=== PATIENT | male | born 1985 | race Caucasian/White ===

== ENCOUNTER 2016-11-30 23:16 | Emergency (ER) | payer SELFPAY ==
[~2016-11-30] VITALS: Wt 70.3 kg
[~2016-11-30 23:16] MED LIST: AMOXICILLIN500 MG PO; AMOXIL500 MG PO; ANAPROX DS550 MG PO; ATARAX25 MG PO; ATENOLOL25 MG PO; BACTRIM DS 8001 TA1 PO; CLARITIN10 MG PO; CLEOCIN HCL150 MG PO; CLINDAMYCIN HC300 MG PO; CLINDAMYCIN300 MG PO; CYMBALTA60 MG PO; DAYPRO600 M1 PO; DOXYCYCLINE MO100 MG PO; ERYTHROMYCIN5 MG/G1 OP; FLEXERIL10 MG PO; FLEXERIL5 MG PO; Fioricet 325 MG1 TAB PO; IBU-8800 MG PO; IMITREX50 MG PO; KEFLEX500 MG PO; KENALOG0.1% TP; LOPRESSOR25 MG PO; Lunesta2 MG PO; MOTRIN600 MG PO; MOTRIN800 MG PO; MS CONTIN30 MG PO; NKHM; Nystatin Cream15 GM PO; OMNICEF300 MG PO; OXYCONTIN20 MG PO; PEN-VEE K500 MG PO; PREDNICOT20 MG PO; REQUIP5 MG PO; RIBAVIRIN PO; SEPTRA DS 800 M1 TAB PO; SEROQUEL50 MG PO; SUBOXONE 8 MG-21 TA2 SL; SUDAFED60 MG PO; TRAMADOL HCL50 MG PO; TRAMADOL50 MG PO; TRIMOX500 MG PO; ULTRAM50 MG PO; VICODIN 5/500 505 MG PO; VICODIN 500 MG-1 TAB PO; VICODIN ES 7501 TAB PO; VISTARIL25 M1 PO; VOLTAREN50 M1 PO; WYMOX500 MG PO; ZITHROMAX Z PA250 MG PO; ZYRTEC10 MG PO
[2016-12-01 00:21] LABS: BASO % 0.3 % (0.0-1.0); EOS # 0.1 10*3/uL (0.0-0.4); EOS % 1.4 % (1.0-4.0); HEMATOCRIT 41.9 % (42.0-52.0); LYMPH # 3.7 10*3/uL (1.3-4.4); LYMPH % 43.5 % (27.0-41.0); MEAN CELL VOLUME 83.6 fl (80.0-94.0); MEAN CORPUSCULAR HGB 27.9 pg (27.0-31.0); MEAN CORPUSCULAR HGB CONC 33.4 g/dl (33.0-37.0); MONO # 0.6 10*3/uL (0.1-1.0); MONO % 7.2 % (3.0-9.0); NEUT # 4.1 10*3/uL (2.3-7.9); NEUT % 47.5 % (47.0-73.0); PLATELET COUNT AUTOMATED 196 10*3/uL (130-400); RED BLOOD COUNT 5.01 10*6/uL (4.50-5.90); RED CELL DISTRI WIDTH 13.1 % (0-14.5); WHITE BLOOD COUNT 8.6 10*3/uL (4.8-10.8)
[2016-12-01 00:37] LABS: ALBUMIN 3.6 gm/dl (3.1-4.5); ALKALINE PHOSPHATASE 63 U/L (45-117); BILIRUBIN, TOTAL 0.4 mg/dl (0.2-1.0); BUN 15 mg/dl (7-24); C-REACTIVE PROTEIN 0.53 MG/DL (0-0.3); CARBON DIOXIDE 28 mmol/L (21-32); CHLORIDE 102 mmol/L (98-107); EST GLOM FILT AFRICAN AMERICAN > 60 ml/min; GLUCOSE 95 mg/dL (65-99); POTASSIUM 3.4 mmol/L (3.5-5.1); SGOT/AST 12 IU/L (3-35); SGPT/ALT 11 U/L (12-78); SODIUM 139 mmol/L (136-145); TOTAL PROTEIN 7.9 gm/dL (6.4-8.2)
== END 2016-12-01 02:52 | disposition left against medical advice (07) ==
LOC: ED 23:16
PROVIDERS: Emergency Medicine Emergency Medical Services
DX: R11.2 Nausea with vomiting, unspecified (principal); F17.200 Nicotine dependence, unspecified, uncomplicated

== ENCOUNTER 2017-03-31 23:35 | Emergency (ER) | payer SELFPAY ==
[~2017-03-31] VITALS: Ht 170.1 cm; Wt 70.3 kg
[2017-04-01] MEDS ORDERED: CEFADROXIL500 M1 PO (00:01)
== END 2017-04-01 01:09 | disposition home or self-care (01) ==
LOC: ED 23:35
DX: S80.862A Insect bite (nonvenomous), left lower leg, initial encounter (principal); F17.200 Nicotine dependence, unspecified, uncomplicated; X58.XXXA Exposure to other specified factors, initial encounter; Y93.9 Activity, unspecified; Y92.9 Unspecified place or not applicable; Y99.9 Unspecified external cause status

== ENCOUNTER 2017-10-30 14:32 | Emergency (ER) | payer OTHER ==
[~2017-10-30] VITALS: Ht 170.1 cm; Wt 68.0 kg
[~2017-10-30 14:32] MED LIST changes: +CEFADROXIL500 M1 PO
== END 2017-10-30 15:09 | disposition home or self-care (01) ==
LOC: ED 14:32
DX: R73.09 Other abnormal glucose (principal); R25.1 Tremor, unspecified; H53.8 Other visual disturbances; R11.0 Nausea; R51 Headache

== ENCOUNTER 2017-11-20 05:19 | Emergency (ER) | payer OTHER ==
[~2017-11-20] VITALS: Ht 170.1 cm; Wt 70.3 kg
[2017-11-20] MEDS ORDERED: MONTELUKAST SODI5 M1 PO (06:03)
[2017-11-20] MEDS ORDERED: ADV 100/50 INH (06:04)
[2017-11-20] MEDS ORDERED: PROVENTIL HFA6.7 GM INH (06:04)
[2017-11-20] MEDS ORDERED: KETOROLAC10 MG PO (06:17)
== END 2017-11-20 06:20 | disposition home or self-care (01) ==
LOC: ED 05:19
DX: S80.02XA Contusion of left knee, initial encounter (principal); W21.03XA Struck by baseball, initial encounter; Y93.79 Activity, other specified sports and athletics; Y92.89 Other specified places as the place of occurrence of the external cause; Y99.8 Other external cause status

== ENCOUNTER 2018-01-10 18:21 | Emergency (ER) | payer OTHER ==
[~2018-01-10] VITALS: Ht 167.6 cm; Wt 68.0 kg
[~2018-01-10 18:21] MED LIST changes: +ADV 100/50 INH; +KETOROLAC10 MG PO; +MONTELUKAST SODI5 M1 PO; +PROVENTIL HFA6.7 GM INH
[2018-01-10] MEDS ORDERED: SEPTDS PO (18:43)
== END 2018-01-10 19:07 | disposition home or self-care (01) ==
LOC: ED 18:21
DX: L02.416 Cutaneous abscess of left lower limb (principal); Z79.899 Other long term (current) drug therapy

== ENCOUNTER 2018-02-17 18:38 | Emergency (ER) | payer OTHER ==
[~2018-02-17] VITALS: Ht 170.1 cm; Wt 68.0 kg
[~2018-02-17 18:38] MED LIST changes: +SEPTDS PO
[2018-02-17] MEDS ORDERED: SEPTDS PO (18:40)
[2018-02-17] MEDS ORDERED: KEFLEX500 M1 PO (18:40)
== END 2018-02-17 18:51 | disposition home or self-care (01) ==
LOC: ED 18:38
DX: L98.499 Non-pressure chronic ulcer of skin of other sites with unspecified severity (principal); R03.0 Elevated blood-pressure reading, without diagnosis of hypertension

== ENCOUNTER → 2018-03-24 | Outpatient (CLI) | payer OTHER ==
[~2018-03-24] MED LIST changes: +KEFLEX500 M1 PO
== END | disposition home or self-care (01) ==
LOC: RESCLI 01:48
DX: E16.2 Hypoglycemia, unspecified (principal); F90.9 Attention-deficit hyperactivity disorder, unspecified type; R00.0 Tachycardia, unspecified; F17.210 Nicotine dependence, cigarettes, uncomplicated; Z79.899 Other long term (current) drug therapy

== ENCOUNTER → 2018-04-03 | Outpatient (CLI) | payer SELFPAY | END | disposition home or self-care (01) | LOC: LAB 00:36 | DX: E16.2 Hypoglycemia, unspecified (principal) ==

== ENCOUNTER → 2018-07-20 | Outpatient (CLI) | payer SELFPAY | END | disposition home or self-care (01) | LOC: RESCLI 03:14 | DX: L24.9 Irritant contact dermatitis, unspecified cause (principal); F90.9 Attention-deficit hyperactivity disorder, unspecified type; F17.200 Nicotine dependence, unspecified, uncomplicated; Z79.899 Other long term (current) drug therapy; Z88.8 Allergy status to other drugs, medicaments and biological substances ==

== ENCOUNTER → 2018-09-07 | Outpatient (CLI) | payer OTHER | END | disposition home or self-care (01) | LOC: LAB 13:53 | DX: R20.8 Other disturbances of skin sensation (principal) ==

== ENCOUNTER 2021-03-12 12:56 | Emergency (ER) | payer OTHER ==
[~2021-03-12] VITALS: Ht 170.1 cm; Wt 68.0 kg
[2021-03-12 14:22] LABS: BASO % 0.4 % (0.0-1.0); EOS # 0.1 10*3/uL (0.0-0.4); EOS % 0.5 % (1.0-4.0); HEMATOCRIT 44.6 % (42.0-52.0); LYMPH # 2.5 10*3/uL (1.3-4.4); LYMPH % 25.8 % (27.0-41.0); MEAN CORPUSCULAR HGB 28.9 pg (27.0-31.0); MEAN CORPUSCULAR HGB CONC 32.5 g/dl (33.0-37.0); MEAN PLATELET VOLUME 9.4 fl (9.6-12.3); MONO # 0.6 10*3/uL (0.1-1.0); MONO % 6.6 % (3.0-9.0); NEUT # 6.3 10*3/uL (2.3-7.9); NEUT % 66.4 % (47.0-73.0); PLATELET COUNT AUTOMATED 264 10*3/uL (130-400); RED BLOOD COUNT 5.01 10*6/uL (4.50-5.90); RED CELL DISTRI WIDTH 13.7 % (0-14.5); WHITE BLOOD COUNT 9.5 10*3/uL (4.8-10.8)
[2021-03-12 14:34] LABS: BILIRUBIN Negative (Negative); BLOOD Negative (Negative); CLARITY Clear (Clear); COLOR Yellow (Yellow); GLUCOSE Negative (Negative); KETONE 1+ (Negative); LEUKO ESTERASE Negative (Negative); NITRITE Negative (Negative); PH 5.5 (4.5-8.0); SPECIFIC GRAVITY >= 1.030 (1.001-1.030)
[2021-03-12 14:39] LABS: URINE AMPHETAMINES > 1000 (1000ng/ml); URINE BARBITURATES < 200 (200ng/ml); URINE BENZODIAZEPINES > 200 (200ng/ml); URINE CANNABINOIDS (THC) > 50 (50ng/ml); URINE COCAINE < 300 (300ng/ml); URINE METHADONE < 300 (300ng/ml); URINE OPIATES < 300 (300ng/ml)
[2021-03-12 14:43] LABS: BACTERIA TRACE; CALCIUM OXALATE CRYSTALS Trace; EPITHELIAL CELLS 0-2; MUCOUS 1+; RBC 0-2 rbc/hpf (0-2)
[2021-03-12 14:43] LABS: ALBUMIN 3.7 gm/dl (3.1-4.5); ALKALINE PHOSPHATASE 67 U/L (45-117); BUN 20 mg/dl (7-24); CHLORIDE 111 mmol/L (98-107); CPK 503 U/L (39-308); CREATININE 1.07 mg/dL (0.70-1.30); POTASSIUM 2.8 mmol/L (3.5-5.1); SGOT/AST 24 IU/L (3-35); SGPT/ALT 29 U/L (12-78); SODIUM 140 mmol/L (136-145); TOTAL PROTEIN 7.3 gm/dL (6.4-8.2)
[2021-03-12 14:48] LABS: URINE PHENCYCLIDINE < 25 (25ng/ml)
[2021-03-12 14:49] LABS: ETHYL ALCOHOL < 3.0 mg/dl (<3)
[2021-03-13 14:15] LABS: BUN 17 mg/dl (7-24); CHLORIDE 108 mmol/L (98-107); SODIUM 140 mmol/L (136-145)
[2021-03-13 14:23] LABS: CPK 253 U/L (39-308)
[2021-03-13 14:24] LABS: POTASSIUM 4.2 mmol/L (3.5-5.1)
== END 2021-03-13 17:30 ==
LOC: ED 12:56
PROVIDERS: Emergency Medicine; Family Medicine
DX: F15.959 Other stimulant use, unspecified with stimulant-induced psychotic disorder, unspecified (principal); Z20.822 Contact with and (suspected) exposure to COVID-19; F17.200 Nicotine dependence, unspecified, uncomplicated

== ENCOUNTER 2021-04-16 09:04 | Emergency (ER) | payer OTHER ==
[~2021-04-16] VITALS: Ht 170.1 cm; Wt 68.0 kg
== END 2021-04-16 11:55 | disposition home or self-care (01) ==
LOC: ED 09:04
DX: S39.011A Strain of muscle, fascia and tendon of abdomen, initial encounter (principal); X50.0XXA Overexertion from strenuous movement or load, initial encounter; Y93.89 Activity, other specified; Y92.89 Other specified places as the place of occurrence of the external cause; Y99.8 Other external cause status

== ENCOUNTER 2021-09-12 09:42 | Emergency (ER) | payer OTHER ==
[~2021-09-12] VITALS: Ht 167.6 cm; Wt 77.1 kg
[2021-09-12 10:54] LABS: BASO % 0.5 % (0.0-1.0); EOS # 0.2 10*3/uL (0.0-0.4); EOS % 2.6 % (1.0-4.0); HEMATOCRIT 44.8 % (42.0-52.0); LYMPH # 2.3 10*3/uL (1.3-4.4); LYMPH % 27.9 % (27.0-41.0); MEAN CELL VOLUME 85.8 fl (80.0-94.0); MEAN CORPUSCULAR HGB 28.9 pg (27.0-31.0); MEAN CORPUSCULAR HGB CONC 33.7 g/dl (33.0-37.0); MEAN PLATELET VOLUME 9.7 fl (9.6-12.3); MONO # 0.8 10*3/uL (0.1-1.0); MONO % 9.9 % (3.0-9.0); NEUT # 4.9 10*3/uL (2.3-7.9); NEUT % 58.9 % (47.0-73.0); PLATELET COUNT AUTOMATED 291 10*3/uL (130-400); RED BLOOD COUNT 5.22 10*6/uL (4.50-5.90); RED CELL DISTRI WIDTH 12.4 % (0-14.5); WHITE BLOOD COUNT 8.2 10*3/uL (4.8-10.8)
[2021-09-12 11:10] LABS: ALKALINE PHOSPHATASE 71 U/L (45-117); BUN 23 mg/dl (7-24); CHLORIDE 107 mmol/L (98-107); CREATININE 1.09 mg/dL (0.70-1.30); POTASSIUM 3.8 mmol/L (3.5-5.1); SGOT/AST 45 IU/L (3-35); SGPT/ALT 28 U/L (12-78); SODIUM 140 mmol/L (136-145); TOTAL PROTEIN 7.8 gm/dL (6.4-8.2)
[2021-09-12 11:30] LABS: CPK 1177 U/L (39-308); ETHYL ALCOHOL < 3.0 mg/dl (<3)
== END 2021-09-12 12:29 | disposition home or self-care (01) ==
LOC: ED 09:42
PROVIDERS: Emergency Medicine
DX: R51.9 Headache, unspecified (principal)

== ENCOUNTER 2021-11-12 19:26 | Emergency (ER) | payer OTHER | END 2021-11-12 20:11 | disposition left against medical advice (07) | LOC: ED 19:26 | DX: Z53.21 Procedure and treatment not carried out due to patient leaving prior to being seen by health care provider (principal) ==

== ENCOUNTER 2021-11-16 20:47 | Emergency (ER) | payer OTHER | END 2021-11-16 20:53 | disposition left against medical advice (07) | LOC: ED 20:47 | DX: Z53.21 Procedure and treatment not carried out due to patient leaving prior to being seen by health care provider (principal) ==

== ENCOUNTER 2022-07-17 11:42 | Emergency (ER) | payer OTHER ==
[~2022-07-17] VITALS: Wt 79.4 kg
== END 2022-07-17 13:33 | disposition home or self-care (01) ==
LOC: ED 11:42
DX: M54.50 Low back pain, unspecified (principal); F10.90 Alcohol use, unspecified, uncomplicated

== ENCOUNTER 2023-12-30 19:52 | Emergency (ER) | payer OTHER ==
[~2023-12-30] VITALS: Ht 170.1 cm; Wt 74.8 kg
[~2023-12-30 19:52] MED LIST changes: +MELOXICAM15 MG PO; +WELLBUTRIN SR150 MG PO
[2023-12-30] MEDS ORDERED: methylPREDNISolone sod succ 125 MG VIAL IM ONE (21:35)
[2023-12-30] MEDS ORDERED: PREDNISONE20 M1 PO (21:36)
== END 2023-12-30 22:26 | disposition home or self-care (01) ==
LOC: ED 19:52
DX: L23.7 Allergic contact dermatitis due to plants, except food (principal); I10 Essential (primary) hypertension; Z98.890 Other specified postprocedural states

== ENCOUNTER → 2024-01-26 | Outpatient (CLI) | payer OTHER ==
[~2024-01-26] MED LIST changes: +PREDNISONE20 M1 PO
[2024-01-26 14:09] LABS: BASO # 0.1 10*3/uL (0.0-0.1); BASO % 0.7 % (0.0-1.0); EOS # 0.4 10*3/uL (0.0-0.4); EOS % 5.3 % (1.0-4.0); LYMPH # 2.3 10*3/uL (1.3-4.4); MEAN CELL VOLUME 84.9 fl (80.0-94.0); MEAN CORPUSCULAR HGB 29.2 pg (27.0-31.0); MEAN CORPUSCULAR HGB CONC 34.3 g/dl (33.0-37.0); MEAN PLATELET VOLUME 9.3 fl (9.6-12.3); MONO # 0.6 10*3/uL (0.1-1.0); MONO % 7.5 % (3.0-9.0); NEUT # 4.3 10*3/uL (2.3-7.9); NEUT % 55.8 % (47.0-73.0); PLATELET COUNT AUTOMATED 316 10*3/uL (130-400); RED BLOOD COUNT 5.42 10*6/uL (4.50-5.90); RED CELL DISTRI WIDTH 13.7 % (0-14.5); WHITE BLOOD COUNT 7.7 10*3/uL (4.8-10.8)
[2024-01-26 14:39] LABS: ALKALINE PHOSPHATASE 68 U/L (46-116); BUN 17 mg/dl (9-23); CHLORIDE 108 mmol/L (98-107); POTASSIUM 3.5 mmol/L (3.4-5.1); SGPT/ALT 43 U/L (5-49); TOTAL PROTEIN 7.3 gm/dL (6.0-8.0); VITAMIN D, 25-HYDROXY 31.4 ng/mL (30-100)
== END | disposition home or self-care (01) ==
LOC: LAB 13:46
DX: Z79.899 Other long term (current) drug therapy (principal)

== ENCOUNTER 2024-02-15 21:11 | Emergency (ER) | payer OTHER ==
[2024-02-16] MEDS ORDERED: NAPROSYN500 MG PO (15:52)
[2024-02-16] MEDS ORDERED: METHOCARBAMOL500 M1 PO (15:52)
== END 2024-02-15 21:40 | disposition left against medical advice (07) ==
LOC: ED 21:11
DX: R51.9 Headache, unspecified (principal); Z53.21 Procedure and treatment not carried out due to patient leaving prior to being seen by health care provider

== ENCOUNTER 2024-02-16 14:02 | Emergency (ER) | payer OTHER ==
[~2024-02-16] VITALS: Ht 170.1 cm
[2024-02-16 14:56] LABS: BASO # 0.1 10*3/uL (0.0-0.1); BASO % 0.8 % (0.0-1.0); EOS # 0.4 10*3/uL (0.0-0.4); EOS % 5.1 % (1.0-4.0); HEMATOCRIT 46.8 % (42.0-52.0); LYMPH # 2.6 10*3/uL (1.3-4.4); LYMPH % 30.4 % (27.0-41.0); MEAN CELL VOLUME 84.5 fl (80.0-94.0); MEAN CORPUSCULAR HGB 29.1 pg (27.0-31.0); MEAN CORPUSCULAR HGB CONC 34.4 g/dl (33.0-37.0); MEAN PLATELET VOLUME 9.5 fl (9.6-12.3); MONO # 0.7 10*3/uL (0.1-1.0); MONO % 7.8 % (3.0-9.0); NEUT # 4.7 10*3/uL (2.3-7.9); NEUT % 55.3 % (47.0-73.0); PLATELET COUNT AUTOMATED 329 10*3/uL (130-400); RED BLOOD COUNT 5.54 10*6/uL (4.50-5.90); RED CELL DISTRI WIDTH 13.4 % (0-14.5); WHITE BLOOD COUNT 8.5 10*3/uL (4.8-10.8)
[2024-02-16 15:15] LABS: BUN 8 mg/dl (9-23); CHLORIDE 106 mmol/L (98-107); POTASSIUM 3.9 mmol/L (3.4-5.1)
[2024-02-16 15:40] LABS: BILIRUBIN Negative (Negative); BLOOD Negative (Negative); CLARITY Clear (Clear); COLOR Yellow (Yellow); GLUCOSE Negative (Negative); KETONE Negative (Negative); LEUKO ESTERASE Negative (Negative); NITRITE Negative (Negative); PH 6.5 (4.5-8.0); SPECIFIC GRAVITY <= 1.005 (1.001-1.030); UROBILINOGEN 0.2 E.U./dl (0.0-1.0)
[2024-02-16] MEDS ORDERED: METHOCARBAMOL500 M1 PO (15:52)
[2024-02-16] MEDS ORDERED: NAPROSYN500 MG PO (15:52)
[2024-02-16 15:56] LABS: EPITHELIAL CELLS 0-2
== END 2024-02-16 16:15 | disposition home or self-care (01) ==
LOC: ED 14:02
PROVIDERS: Nurse Practitioner Family
DX: S49.91XA Unspecified injury of right shoulder and upper arm, initial encounter (principal); M25.531 Pain in right wrist; I10 Essential (primary) hypertension; Z98.890 Other specified postprocedural states; V03.90XA Pedestrian on foot injured in collision with car, pick-up truck or van, unspecified whether traffic or nontraffic accident, initial encounter; Y93.K1 Activity, walking an animal; Y92.410 Unspecified street and highway as the place of occurrence of the external cause; Y99.8 Other external cause status

== ENCOUNTER 2024-04-14 16:38 | Emergency (ER) | payer OTHER ==
[~2024-04-14 16:38] MED LIST changes: +METHOCARBAMOL500 M1 PO; +NAPROSYN500 MG PO
== END 2024-04-14 17:12 | disposition home or self-care (01) ==
LOC: ED 16:38
DX: R19.7 Diarrhea, unspecified (principal); I10 Essential (primary) hypertension; Z98.890 Other specified postprocedural states; F15.10 Other stimulant abuse, uncomplicated

== ENCOUNTER 2024-08-26 16:18 | Emergency (ER) | payer OTHER ==
[~2024-08-26] VITALS: Ht 170.1 cm; Wt 72.6 kg
[2024-08-26] MEDS ORDERED: Amoxicillin/Clavulanate Pota 875 MG TAB PO ONE (17:45)
[2024-08-26] MEDS ORDERED: AMOX-CLAV 875-1 EACH PO (17:48)
== END 2024-08-26 18:02 | disposition home or self-care (01) ==
LOC: ED 16:18
DX: S81.831A Puncture wound without foreign body, right lower leg, initial encounter (principal); I10 Essential (primary) hypertension; Z98.890 Other specified postprocedural states; W53.01XA Bitten by mouse, initial encounter; Y93.89 Activity, other specified; Y92.009 Unspecified place in unspecified non-institutional (private) residence as the place of occurrence of the external cause; Y99.8 Other external cause status

== ENCOUNTER 2024-08-31 01:26 | Emergency (ER) | payer OTHER ==
[~2024-08-31] VITALS: Ht 170.2 cm; Wt 72.6 kg
[~2024-08-31 01:26] MED LIST changes: +AMOX-CLAV 875-1 EACH PO
[2024-08-31 02:24] LABS: BASO # 0.1 10*3/uL (0.0-0.1); BASO % 0.6 % (0.0-1.0); EOS # 0.3 10*3/uL (0.0-0.4); EOS % 2.8 % (1.0-4.0); HEMATOCRIT 45.5 % (42.0-52.0); MEAN CELL VOLUME 88.7 fl (80.0-94.0); MEAN CORPUSCULAR HGB 29.2 pg (27.0-31.0); MEAN PLATELET VOLUME 9.4 fl (9.6-12.3); MONO % 8.7 % (3.0-9.0); NEUT # 8.2 10*3/uL (2.3-7.9); NEUT % 68.1 % (47.0-73.0); PLATELET COUNT AUTOMATED 365 10*3/uL (130-400); RED BLOOD COUNT 5.13 10*6/uL (4.50-5.90); RED CELL DISTRI WIDTH 12.6 % (0-14.5)
[2024-08-31 02:43] LABS: BUN 15 mg/dl (9-23); CHLORIDE 103 mmol/L (98-107); POTASSIUM 3.6 mmol/L (3.4-5.1)
[2024-08-31] MEDS ORDERED: SEPTDS PO (03:35)
[2024-08-31] MEDS ORDERED: Sulfamethoxazole/Trimethopri 1 TAB TAB PO ONE (03:35)
== END 2024-08-31 03:36 | disposition home or self-care (01) ==
LOC: ED 01:26
PROVIDERS: Internal Medicine
DX: L02.211 Cutaneous abscess of abdominal wall (principal); L03.116 Cellulitis of left lower limb; L03.115 Cellulitis of right lower limb; L02.214 Cutaneous abscess of groin

== ENCOUNTER 2024-09-02 00:15 | Emergency (ER) | payer OTHER ==
[~2024-09-02] VITALS: Ht 170.1 cm; Wt 72.6 kg
[2024-09-02] MEDS ORDERED: Tdap Vaccine 0.5 ML SYR (Adult Vaccine) IM ONE (01:10)
== END 2024-09-02 01:41 | disposition home or self-care (01) ==
LOC: ED 00:15
DX: K65.1 Peritoneal abscess (principal); I10 Essential (primary) hypertension; F15.10 Other stimulant abuse, uncomplicated; Z87.891 Personal history of nicotine dependence; Z98.890 Other specified postprocedural states

== ENCOUNTER 2024-09-06 04:36 | Emergency (ER) | payer OTHER ==
[2024-09-06] MEDS ORDERED: IOHEXOL 300 MG/ML 100 ML VIAL IV ONE (05:00)
== END 2024-09-06 05:19 | disposition left against medical advice (07) ==
LOC: ED 04:36
DX: L02.214 Cutaneous abscess of groin (principal); Z53.29 Procedure and treatment not carried out because of patient's decision for other reasons

== ENCOUNTER 2024-09-07 12:38 | Emergency (ER) | payer OTHER ==
[~2024-09-07] VITALS: Ht 170.1 cm; Wt 72.6 kg
== END 2024-09-07 13:20 | disposition left against medical advice (07) ==
LOC: ED 12:38
DX: L02.214 Cutaneous abscess of groin (principal); F31.9 Bipolar disorder, unspecified; Z79.2 Long term (current) use of antibiotics